=== PATIENT | male | born 1990 | race African-American/Black ===

== ENCOUNTER 2016-05-15 09:50 | Emergency (ER) | payer OTHER ==
[~2016-05-15] VITALS: Ht 185.4 cm; Wt 194.6 kg
--- NOTE | 2016-05-15 10:21 | ED THROAT/DENTAL COMPLAINT ---
History of Present Illness General Chief Complaint: Sore Throat, Dental Pain Stated Complaint: SORE THROAT X 2DYS Source: patient Exam Limitations: no limitations Vital Signs & Intake/Output Vital Signs & Intake/Output Vital Signs Date Time Temp Pulse Resp B/P Pulse O2 O2 Flow FiO2 Ox Delivery Rate 05/15 1022 Room Air Room Air 05/15 0953 98.8 100 18 177/95 98 Room Air Allergies Uncoded Allergies: Allergy Other N Med Allergies N Reconcile Medications Amoxicillin 500 MG CAPSULE 1 CAP PO TID STREP Naproxen (Naprosyn) 500 MG TABLET 1 TAB PO BID PRN PAIN/INFLAMMATION Triage Note: PT TO ED FOR SORE THROAT X 2 DAYS. Triage Nurses Notes Reviewed? yes HPI: 3 days of severe sore throat, Mild tactile fever, change in voice, painful swallowing. Symptoms are getting worse. He was nauseous and felt like he was going to vomit today. He has a mild cough. He has no abdominal pain, no ear pain. He has mild rhinorrhea. No sick contacts. No treatment thus far. (LEISA JUNG) Past History Travel History Traveled to [place] past 21 day No Medical History Any Pertinent Medical History? see below for history Neurological: NONE EENT: NONE Cardiovascular: hypertension Respiratory: NONE Gastrointestinal: NONE Hepatic: NONE Renal: NONE Musculoskeletal: NONE Psychiatric: NONE Endocrine: NONE Blood Disorders: NONE Cancer(s): NONE Surgical History Surgical History: non-contributory Psychosocial History What is your primary language [place] Tobacco Use: Never used ETOH Use: denies use Illicit Drug Use: denies illicit drug use Family History Hx Contributory? No (LEISA UJNG) Review of Systems Review of Systems Constitutional: Reports: see HPI. EENTM: Reports: see HPI. Respiratory: Reports: no symptoms. Cardiovascular: Reports: no symptoms. GI: Reports: no symptoms. Genitourinary: Reports: no symptoms. Musculoskeletal: Reports: no symptoms. Skin: Reports: no symptoms. Neurological/Psychological: Reports: no symptoms. Hematologic/Endocrine: Reports: no symptoms. Immunologic/Allergic: Reports: no symptoms. All Other Systems: Reviewed and Negative (LEISA JUNG) Physical Exam Physical Exam Mouth/Throat: PHARYNX WITH MODERATE ERYTHEMA AND TONSILLAR HYPERTROPHY Neck: supple, full range of motion, trachea midline, lymphadenopathy (R), lymphadenopathy (L) Cardiovascular/Respiratory: normal breath sounds, normal peripheral pulses, regular rate/rhythm, no respiratory distress Comments: Well-developed well-nourished no apparent distress. HEENT: Atraumatic, extraocular motion intact Neck: Supple, Back: Nontender Respiratory: No respiratory distress Extremities: No edema, full range of motion Neuro: Alert and oriented x3 Psych: Mood affect normal, normal memory normal judgment. Skin: Warm and dry, no rash on exposed skin Core Measures ACS in differential dx? No Severe Sepsis Present: No Septic Shock Present: No (LEISA JUNG) Progress Differential Diagnosis: aspirated tooth, carious tooth, epiglottitis, Ludwigs angina, meningitis, odontogenic abscess, candice-tonsillar abscess, pharyngeal for. body, stomatitis/gingivitis, strep pharyngitis, tooth fracture Plan of Care: Orders Procedure Date/time Status THROAT CULTURE W/QUICK STREP 05/15 0894 Complete Comments: Suspect strep pharyngitis. Rapid strep positive, we'll treat with amoxicillin and Naprosyn. (LEISA JUNG) Departure Departure Disposition: HOME OR SELF CARE Condition: Stable Clinical Impression Primary Impression: Strep pharyngitis Referrals: PATIENT HAS NO PRIMARY CARE DR (PCP/Family) Additional Instructions: Take antibiotics for your infection as directed. Take Naprosyn for pain and inflammation and fever Tylenol for pain or fever Drink plenty of fluids. Return or follow-up with your doctor if not better in the next 3-5 days or if you're having continued worsening fevers, nausea, vomiting, shortness of breath, abdominal pain, difficulty swallowing or drinking or worsening flulike illness. Departure Forms: Customer Survey General Discharge Information Prescriptions: Current Visit Scripts Amoxicillin 1 CAP PO TID #21 CAP Naproxen (Naprosyn) 1 TAB PO BID PRN PAIN/INFLAMMATION #14 TAB (LEISA JUNG) PA/DATA PROGRAMMER Co-Sign Statement Statement: ED Attending supervision documentation- [] I saw and evaluated the patient. I have also reviewed all the pertinent lab results and diagnostic results. I agree with the findings and the plan of care as documented in the PA's/DATA PROGRAMMER's documentation. [X] I have reviewed the ED Record and agree with the PA's/DATA PROGRAMMER's documentation. [] Additions or exceptions (if any) to the PAs/DATA PROGRAMMER's note and plan are summarized below: [] (YUE RIVERA,WESTON Paredes)
[2016-05-15] MEDS ORDERED: AMOXICILLIN500 M2 PO (10:37)
[2016-05-15] MEDS ORDERED: NAPROSYN500 M1 PO (10:37)
== END 2016-05-15 10:40 ==
LOC: ERH 09:50
DX: J02.0 Streptococcal pharyngitis (principal)